=== PATIENT | male | born 1980 | race Caucasian/White ===

== ENCOUNTER 2017-04-17 16:38 | Emergency (ER) | payer OTHER ==
[~2017-04-17] VITALS: Ht 177.8 cm; Wt 101.7 kg
[2017-04-17 18:06] LABS: BASOPHIL (%) 0.5 % (0-1); EOSINOPHIL (%) 1.6 % (0-5); EOSINOPHIL COUNT 0.1 K/uL (0-0.3); HEMATOCRIT 43.1 % (38.0-50.0); HEMOGLOBIN 13.9 G/DL (12.5-16.6); IMMATURE GRANULOCYTE (%) 0.2 % (0.0-0.7); LYMPHOCYTE (%) 34.2 % (15-42); LYMPHOCYTE COUNT 1.9 K/uL (1.0-2.8); MCHC 32.3 G/DL (30.0-36.0); MCV 89.8 FL (86-99); MONOCYTE (%) 7.3 % (3-12); MONOCYTE COUNT 0.4 K/uL (0-0.8); NEUTROPHIL (%) 56.2 % (45-76); NEUTROPHIL COUNT 3.2 K/uL (1.8-6.4); PLATELET COUNT 140 K/uL (156-360); RBC DIS.WIDTH-CV 12.7 % (11.8-14.6); RBC DIS.WIDTH-SD 41.5 % (39-53); WHITE BLOOD COUNT 5.6 K/uL (4.1-10.2)
[2017-04-17 18:27] LABS: TROP-I INTERPRETATION NEGATIVE; TROPONIN-I < 0.01 ng/mL (0.0-0.30)
[2017-04-17 18:37] LABS: D-DIMER ELISA < 150.00 ng/mLDDU (<230)
[2017-04-17 20:45] LABS: TROP-I INTERPRETATION NEGATIVE; TROPONIN-I < 0.01 ng/mL (0.0-0.30)
[2017-04-17 21:51] VITALS: BP 112/73
== END 2017-04-17 21:57 ==
LOC: EME 16:38
PROVIDERS: Emergency Medicine
DX: R07.2 Precordial pain (principal); E11.9 Type 2 diabetes mellitus without complications; G80.9 Cerebral palsy, unspecified; I10 Essential (primary) hypertension; Z86.718 Personal history of other venous thrombosis and embolism; Z99.3 Dependence on wheelchair
CPT/HCPCS: 71045; 83880; 84484; 85025 91; 85379; 93005; 99281; 99285

== ENCOUNTER 2017-04-20 12:00 | Emergency (ER) | payer OTHER ==
[~2017-04-20] VITALS: Ht 177.8 cm; Wt 100.2 kg
[2017-04-20] MEDS ORDERED: ZOFRAN4 MG PO (12:27)
[2017-04-20] MEDS ORDERED: METFORMIN HCL500 M4 PO (12:28)
[2017-04-20] MEDS ORDERED: PROMETHAZINE HC25 M1 PO (12:28)
[2017-04-20] MEDS ORDERED: FLOMAX0.4 MG PO (12:29)
[2017-04-20] MEDS ORDERED: [UNRECOGNIZED DRUG - CODE] DT (12:29)
[2017-04-20] MEDS ORDERED: PRAVACHOL20 MG PO (12:30)
[2017-04-20] MEDS ORDERED: SEROQUEL XR150 MG PO (12:30)
[2017-04-20] MEDS ORDERED: LINZESS145 MCG PO (12:31)
[2017-04-20] MEDS ORDERED: PROTONIX40 MG PO (12:31)
[2017-04-20] MEDS ORDERED: NIASPAN,SLO-NI500 MG PO (12:33)
[2017-04-20] MEDS ORDERED: DITROPAN XL5 MG PO (12:33)
[2017-04-20] MEDS ORDERED: CYMBALTA20 MG PO (12:33)
[2017-04-20 13:21] LABS: BASOPHIL (%) 0.3 % (0-1); EOSINOPHIL (%) 0.7 % (0-5); EOSINOPHIL COUNT 0.1 K/uL (0-0.3); HEMATOCRIT 42.3 % (38.0-50.0); HEMOGLOBIN 13.8 G/DL (12.5-16.6); IMMATURE GRANULOCYTE (%) 0.4 % (0.0-0.7); LYMPHOCYTE (%) 18.6 % (15-42); LYMPHOCYTE COUNT 1.3 K/uL (1.0-2.8); MCH 29.2 PG (29.0-34.0); MCHC 32.6 G/DL (30.0-36.0); MCV 89.4 FL (86-99); MONOCYTE (%) 6.2 % (3-12); MONOCYTE COUNT 0.4 K/uL (0-0.8); NEUTROPHIL (%) 73.8 % (45-76); PLATELET COUNT 129 K/uL (156-360); RBC DIS.WIDTH-CV 12.6 % (11.8-14.6); RBC DIS.WIDTH-SD 41.1 % (39-53); RED BLOOD COUNT 4.73 M/uL (4.00-5.50); WHITE BLOOD COUNT 6.8 K/uL (4.1-10.2)
[2017-04-20 13:30] LABS: CHLORIDE 106 mEq/L (99-109); POTASSIUM 3.7 mEq/L (3.7-5.4); SODIUM 140 mEq/L (136-147)
[2017-04-20 13:31] LABS: D-DIMER ELISA < 150.00 ng/mLDDU (<230)
[2017-04-20 13:32] LABS: GLUCOSE 107 mg/dL (70-99)
[2017-04-20 13:36] LABS: GFR ESTIMATE (CALCULATED) > 59 mL/min/ (58.99-99999)
[2017-04-20 13:37] LABS: UREA NITROGEN (BUN) 11 mg/dL (9-23)
[2017-04-20 13:43] LABS: TROP-I INTERPRETATION NEGATIVE; TROPONIN-I < 0.01 ng/mL (0.0-0.30)
[2017-04-20 15:12] VITALS: BP 141/77
== END 2017-04-20 15:17 ==
LOC: EME 12:00
PROVIDERS: Emergency Medicine
DX: I87.2 Venous insufficiency (chronic) (peripheral) (principal); R06.02 Shortness of breath; F31.9 Bipolar disorder, unspecified; E11.9 Type 2 diabetes mellitus without complications; Z79.4 Long term (current) use of insulin; I10 Essential (primary) hypertension; G80.9 Cerebral palsy, unspecified; M62.562 Muscle wasting and atrophy, not elsewhere classified, left lower leg; M62.561 Muscle wasting and atrophy, not elsewhere classified, right lower leg
CPT/HCPCS: 71046; 80048; 83880; 84484; 85025; 85379; 93970; 99281; 99284

== ENCOUNTER 2017-11-18 17:17 | Emergency (ER) | payer OTHER ==
[~2017-11-18] VITALS: Ht 162.6 cm; Wt 96.6 kg
[~2017-11-18 17:17] MED LIST: CYMBALTA20 MG PO; DITROPAN XL5 MG PO; FLOMAX0.4 MG PO; LINZESS145 MCG PO; METFORMIN HCL500 M4 PO; NIASPAN,SLO-NI500 MG PO; PRAVACHOL20 MG PO; PROMETHAZINE HC25 M1 PO; PROTONIX40 MG PO; SEROQUEL XR150 MG PO; ZOFRAN4 MG PO; [UNRECOGNIZED DRUG - CODE] DT
[2017-11-18 19:04] LABS: APPEARANCE CLEAR ((CLEAR)); BILIRUBIN NEGATIVE; BLOOD NEGATIVE; COLOR YELLOW ((YELLOW)); GLUCOSE (STRIP) NEGATIVE; KETONES NEGATIVE; LEUKOCYTES NEGATIVE; NITRITE NEGATIVE; PROTEIN (STRIP) NEGATIVE; UCUL ADDED? NO
[2017-11-18 19:34] LABS: BASOPHIL (%) 0.4 % (0-1); EOSINOPHIL (%) 0.7 % (0-5); EOSINOPHIL COUNT 0.1 K/uL (0-0.3); HEMATOCRIT 41.5 % (38.0-50.0); HEMOGLOBIN 14.1 G/DL (12.5-16.6); IMMATURE GRANULOCYTE (%) 0.2 % (0.0-0.7); LYMPHOCYTE (%) 25.2 % (15-42); LYMPHOCYTE COUNT 2.1 K/uL (1.0-2.8); MCH 29.6 PG (29.0-34.0); MCV 87.2 FL (86-99); MONOCYTE (%) 6.4 % (3-12); MONOCYTE COUNT 0.5 K/uL (0-0.8); NEUTROPHIL (%) 67.1 % (45-76); NEUTROPHIL COUNT 5.6 K/uL (1.8-6.4); PLATELET COUNT 173 K/uL (156-360); RBC DIS.WIDTH-CV 12.3 % (11.8-14.6); RBC DIS.WIDTH-SD 39.5 % (39-53); RED BLOOD COUNT 4.76 M/uL (4.00-5.50); WHITE BLOOD COUNT 8.3 K/uL (4.1-10.2)
[2017-11-18 19:45] LABS: ALBUMIN 4.6 g/dL (3.2-4.8); CHLORIDE 100 mEq/L (99-109); POTASSIUM 3.6 mEq/L (3.7-5.4); SODIUM 139 mEq/L (136-147)
[2017-11-18 19:48] LABS: GLUCOSE 117 mg/dL (70-99); TOTAL PROTEIN 7.8 g/dL (6.4-8.3)
[2017-11-18 19:50] LABS: TOTAL BILIRUBIN 0.3 mg/dL (0.0-1.0)
[2017-11-18 19:51] LABS: ALKALINE PHOSPHATASE 98 IU/L (3-129); CREATININE 1.1 mg/dL (0.6-1.3); GFR ESTIMATE (CALCULATED) > 59 mL/min/ (58.99-99999)
[2017-11-18 19:52] LABS: UREA NITROGEN (BUN) 13 mg/dL (9-23)
[2017-11-18 19:53] LABS: AST (GOT) 31 IU/L (2-34)
[2017-11-18 19:54] LABS: ALT (GPT) 44 IU/L (3-49)
[2017-11-18] MEDS ORDERED: NAPROSYN500 MG PO (23:24)
[2017-11-19 00:40] VITALS: BP 127/71
== END 2017-11-19 00:42 ==
LOC: EME 17:17
PROVIDERS: Emergency Medicine
DX: R10.9 Unspecified abdominal pain (principal); G80.9 Cerebral palsy, unspecified; F31.9 Bipolar disorder, unspecified; I10 Essential (primary) hypertension; E11.9 Type 2 diabetes mellitus without complications; Z79.4 Long term (current) use of insulin; Z87.442 Personal history of urinary calculi; Z88.8 Allergy status to other drugs, medicaments and biological substances
CPT/HCPCS: 74176; 80053; 81003; 85025; 99281; 99284; J1885; J7030